=== PATIENT | male | born 1970 | race African-American/Black ===

== ENCOUNTER 2019-10-08 09:10 | Day surgery (SDC) | payer OTHER ==
[2019-10-07 14:52] VITALS: BMI 36.2
[2019-10-08] MEDS ORDERED: DEXMEDETOMIDINE HCL 200 MCG/2 ML IVPB ONE (11:35)
[2019-10-08 16:35] VITALS: BP 100/50; PULSE 53
[2019-10-08 16:39] VITALS: TEMP 97.8
== END 2019-10-08 16:20 | disposition home or self-care (01) ==
LOC: JRADIR 09:10
PROVIDERS: ATTEND Urology
PROC: 0TB03ZX Excision of Right Kidney, Percutaneous Approach, Diagnostic (ICD-10-PCS; principal; 2019-10-08)
PROC: 0T503ZZ Destruction of Right Kidney, Percutaneous Approach (ICD-10-PCS; 2019-10-08)
DX: D41.01 Neoplasm of uncertain behavior of right kidney (principal); Z53.8 Procedure and treatment not carried out for other reasons; I95.89 Other hypotension
CPT/HCPCS: 50593

== ENCOUNTER 2019-12-24 09:16 | Day surgery (SDC) | payer OTHER ==
[2019-12-23 14:13] VITALS: BMI 35.9
[2019-12-24] MEDS ORDERED: FLUMAZENIL 0.5 MG/5 ML VIAL ONE (11:43)
[2019-12-24] MEDS ORDERED: ONDANSETRON 4 MG/2 ML VIAL IVPUSH PRN (12:55)
[2019-12-24 18:30] VITALS: BP 128/70; PULSE 70; TEMP 97.8
--- NOTE | 2019-12-30 13:35 | PATH ---
Surgical Pathology Report Patient Name: BRISEYDA WALSH Med. Rec. #: [id number] /Age/Gender: 1970 (Age: 49) / M Account: [id number] Location: AMBULATORY SURG Taken: 12/24/2019 Received: 12/24/2019 Reported: 12/30/2019 Physicians: James Ralph M.D. Specimen(s) Received KIDNEY BIOPSY Clinical History 49-year-old male with a right upper renal pole exophytic enhancing lesion suspicious for renal cancer Final Diagnosis RENAL, RIGHT, CT GUIDED CORE BIOPSY: RENAL CELL CARCINOMA, WITH PAPILLARY AND CLEAR CELL FEATURES (WHO/ISUP 1). SEE COMMENT. Comment: Immunohistochemical stains performed and interpreted at [facility] show the tumor is diffusely and strongly positive for CK7. [facility] [place] [place] [id number] and interpreted at [facility] show the tumor is positive for vimentin, RCC, SHIRLEY, AMACR(P504S), CD10 (focal), while negative for inhibin and CD117. Immunohistochemical stain performed at [facility] ([id number]) and interpreted at [facility] show the tumor is positive for CAIX. Case seen in intradepartmental review with consensus on diagnosis. Case discussed with Dr. Howard, 12/27/2019. Positive and negative controls (internal if applicable) show appropriate results. Electronically Signed Jenny Triplett M.D. Gross Description Received in formalin labeled "right renal biopsy," are 2 aranda, cylindrical portions of soft tissue averaging 1.2 cm in length and less than 0.1 cm in diameter. The specimens are submitted in toto in one cassette. DL/12/24/2019 saudi/12/24/2019
== END 2019-12-24 18:30 | disposition home or self-care (01) ==
LOC: JASUSAT 09:16
PROVIDERS: ATTEND Urology
PROC: 0T503ZZ Destruction of Right Kidney, Percutaneous Approach (ICD-10-PCS; principal; 2019-12-24 10:00)
DX: C64.1 Malignant neoplasm of right kidney, except renal pelvis (principal)
CPT/HCPCS: 50592; 71045-TC-FY; 77013-TC; 88305-TC; 88341-TC; 88342-TC; 94760